=== PATIENT | female | born 1960 | race Caucasian/White ===

== ENCOUNTER 2018-11-07 11:45 | Observation (INO) ==
--- NOTE | 2018-11-07 15:04 | ED ---
HPI General Chief Complaint: Chest Pain Stated Complaint: Chest Pain Time Seen by Provider: 11/07/18 14:50 Source: patient Mode of arrival: ambulatory Limitations: no limitations History of Present Illness HPI narrative: 57 y/o female presents with note of chest pain since yesterday. She denies associated symptoms. She states it occurred while she was shopping at [employer]. complaint: Reports chest pain Onset (ago): day(s) Duration: intermittent Pain location: Reports substernal Severity: mild Pain radiation: Reports none Relieving factors: nothing Exacerbating factors: nothing Treatments prior to arrival chest pain: Reports none Related Data Home Medications Medication Instructions Recorded Confirmed amlodipine 5 mg PO DAILY 11/07/18 11/07/18 cholecalciferol (vitamin D3) 1,000 unit PO DAILY 11/07/18 11/07/18 [Vitamin D3] enalapril maleate 10 mg PO DAILY 11/07/18 11/07/18 gemfibrozil 600 mg PO BID 11/07/18 11/07/18 Allergies Allergy/AdvReac Type Severity Reaction Status Date / Time penicillin G Allergy Severe Hives Verified 11/07/18 15:10 egg [Eggs] Allergy Intermediate Diarrhea Verified 11/07/18 15:10 Review of Systems ROS: all other systems reviewed are negative PMFSH History History Provided By: Patient (Hypertension) Social History Social History Substance History: No History of Abuse Smoking Status: Former smoker How Often Do You Have a Drink Containing Alcohol: Never Recent Travel in [facility] within the Last 8 Weeks: No Recent Out of Country Travel within the Last 8 Weeks: No Exam Narrative Exam Narrative: GENERAL: 57 y/o female in no apparent distress SKIN: Focused skin assessment warm/dry. HEAD: Atraumatic. Normocephalic. EYES: Pupils equal and round. No scleral icterus. No injection or drainage. ENT: No nasal bleeding or discharge. Mucous membranes pink and moist. NECK: Trachea midline. No JVD. CARDIOVASCULAR: Regular rate and rhythm. No murmur appreciated. RESPIRATORY: No accessory muscle use. Clear to auscultation. Breath sounds equal bilaterally. GASTROINTESTINAL: Abdomen soft, non-tender, nondistended. MUSCULOSKELETAL: No obvious deformities. No clubbing. No cyanosis. No edema. NEUROLOGICAL: Awake and alert. Motor grossly within normal limits. Normal speech. PSYCHIATRIC: Appropriate mood and affect; insight and judgment normal. Course Reevaluation(s) Reevaluation #1: ED workup without emergent process, agrees to chest pain center observation Initial Documented Vital Signs Temperature 97.4 F L 11/07/18 12:15 Pulse Rate 65 11/07/18 12:15 Respiratory Rate 16 11/07/18 12:15 Blood Pressure 204/83 H 11/07/18 12:15 Pulse Oximetry 98 11/07/18 12:15 Last Documented Vital Signs Temperature 97.4 F L 11/07/18 12:15 Pulse Rate 67 11/07/18 16:33 Respiratory Rate 18 11/07/18 16:33 Blood Pressure 135/63 11/07/18 16:33 Pulse Oximetry 99 11/07/18 16:33 Medical Decision Making MDM Narrative Medical decision making narrative: We will check blood work, imaging and reevaluate Medical Screen Exam Complete: Yes Emergency Medical Condition: Yes Differential Diagnosis Differential Diagnosis: Musculoskeletal, gastritis, atypical cardiac Lab Data Lab results reviewed: Yes I reviewed the patient's lab results. Result diagrams: 11/07/18 15:20 11/07/18 15:20 Lab Results 11/07/18 11/07/18 11/07/18 Range/Units 15:20 15:20 15:50 WBC 7.8 (4.0-11.0) th/mm3 RBC 4.38 (4.00-5.30) mil/mm3 Hgb 13.2 (11.6-15.3) gm/dL Hct 39.0 (35.0-46.0) % MCV 89.0 (80.0-100.0) fL MCH 30.1 (27.0-34.0) pg MCHC 33.8 (32.0-36.0) % RDW 13.9 (11.6-17.2) % Plt Count 211 (150-450) th/mm3 MPV 9.4 (7.0-11.0) fL Neut % (Auto) 56.5 (16.0-70.0) % Lymph % (Auto) 31.3 (9.0-44.0) % [place] % (Auto) 5.8 (0.0-8.0) % Eos % (Auto) 5.4 H (0.0-4.0) % Baso % (Auto) 1.0 (0.0-2.0) % Neut # (Auto) 4.4 (1.8-7.7) th/mm3 Lymph # (Auto) 2.4 (1.0-4.8) th/mm3 [place] # (Auto) 0.5 (0.0-0.9) th/mm3 Eos # (Auto) 0.4 (0.0-0.4) th/mm3 Baso # (Auto) 0.1 (0.0-0.2) th/mm3 WBC Differential . Differential Comment Auto diff final PT 9.8 (9.8-11.6) sec INR 1.0 Ratio APTT 19.5 L (23.4-31.7) sec Sodium 141 (136-145) meq/L Potassium 4.2 (3.5-5.1) meq/L Chloride 110 H (98-107) meq/L Carbon Dioxide 23.1 (21.0-32.0) meq/L Anion Gap 8 (5-15) meq/L BUN 12 (7-18) mg/dL Creatinine 0.79 (0.50-1.00) mg/dL Estimated GFR 75 L (>89) mL/min Random Glucose 103 (74-106) mg/dL Calcium 8.6 (8.5-10.1) mg/dL Magnesium 2.3 (1.5-2.5) mg/dL Total Bilirubin 0.2 (0.2-1.0) mg/dL AST 19 (15-37) U/L ALT 25 (10-53) U/L Alkaline Phosphatase 104 (45-117) U/L Total Creatine Kinase 107 (26-192) U/L CK-MB (CK-2) Less than 1.0 (0.5-3.6) ng/mL Troponin I Less than 0.02 L (0.02-0.05) ng/mL Total Protein 7.6 (6.4-8.2) g/dL Albumin 3.9 (3.4-5.0) g/dL Imaging Data Attestation: I personally reviewed and interpreted this imaging study as follows : Radiologist's impression: Chest X-Ray 11/07/18 14:50 CONCLUSION: 1. Old granulomatous disease. 2. No acute infiltrate. Discharge Plan Discharge Disposition Patient Disposition: ED Admit(ED Internal Use Only) Discharge Order Discharge Orders: ED Use Only Admit Order (Routine); Ordered 11/07/18 Ordered By: Jazmin Mckenzie Discharge Details Diagnosis: Chest pain Physicians Team ED Provider: Jazmin Mckenzie Primary Care Provider: [facility]ician 's Attending Provider: Eleni Edmond ED Status: Admitted Observation Patient
[2018-11-07 15:37] LABS: Baso # (Auto) 0.1 th/mm3 (0.0-0.2); Eos # (Auto) 0.4 th/mm3 (0.0-0.4); Eos % (Auto) 5.4 % (0.0-4.0); Hemoglobin 13.2 gm/dL (11.6-15.3); Lymph # (Auto) 2.4 th/mm3 (1.0-4.8); Lymph % (Auto) 31.3 % (9.0-44.0); Mean Corpuscular HGB Conc 33.8 % (32.0-36.0); Mean Corpuscular Hemoglobin 30.1 pg (27.0-34.0); Mean Platelet Volume 9.4 fL (7.0-11.0); Mono # (Auto) 0.5 th/mm3 (0.0-0.9); Mono % (Auto) 5.8 % (0.0-8.0); Neut # (Auto) 4.4 th/mm3 (1.8-7.7); Neut % (Auto) 56.5 % (16.0-70.0); Platelet Count 211 th/mm3 (150-450); Red Blood Count 4.38 mil/mm3 (4.00-5.30); Red Cell Distribution Width 13.9 % (11.6-17.2); White Blood Count 7.8 th/mm3 (4.0-11.0)
--- NOTE | 2018-11-07 15:40 | XR ---
EXAM DATE: 11/07/2018 3:36 PM EST AGE/SEX: 57 years / Female INDICATIONS: Chest and left arm pain. CLINICAL DATA: This is the patient's initial encounter. Patient reports that signs and symptoms have been present for 2 days and indicates a pain score of 5/10. MEDICAL/SURGICAL HISTORY: None. None. COMPARISON: [facility] [place], CHEST PA & LAT, 04/08/2016. . FINDINGS: A single AP view of the chest demonstrates the lungs to be symmetrically aerated with stable granulom atous type calcifications in the white lower lung. There are also stable right paratracheal and subca rinal granulomatous lymph nodes. Otherwise, no acute infiltrate. No effusion. Heart size is normal. CONCLUSION: 1. Old granulomatous disease. 2. No acute infiltrate. Electronically signed by: Anthony Espinoza MD Board Certified Radiologist 11/07/2018 3:39 PM EST
[2018-11-07 15:56] LABS: Alanine Aminotransferase 25 U/L (10-53)
[2018-11-07 16:00] LABS: Alkaline Phosphatase 104 U/L (45-117); Creatine Kinase 107 U/L (26-192); Total Protein 7.6 g/dL (6.4-8.2)
[2018-11-07] MEDS ORDERED: Aspirin 325 MG Tablet PO ONE (16:10)
[2018-11-07 16:13] LABS: Albumin 3.9 g/dL (3.4-5.0); Anion Gap 8 meq/L (5-15); Aspartate Aminotransferase 19 U/L (15-37); Blood Urea Nitrogen 12 mg/dL (7-18); Calcium 8.6 mg/dL (8.5-10.1); Carbon Dioxide 23.1 meq/L (21.0-32.0); Chloride 110 meq/L (98-107); Glomerular Filtration Rate 75 mL/min (>89); Glucose,Random 103 mg/dL (74-106); Magnesium 2.3 mg/dL (1.5-2.5); Potassium 4.2 meq/L (3.5-5.1); Sodium 141 meq/L (136-145)
[2018-11-07 16:18] LABS: Activated Partial Thrombo Time 19.5 sec (23.4-31.7); Prothrombin Time 9.8 sec (9.8-11.6)
[2018-11-07] MEDS ORDERED: ALPRAZolam 0.25 MG Tablet PO PRN (17:26)
[2018-11-07] MEDS ORDERED: Acetaminophen 500 MG Tablet PO PRN (17:27)
--- NOTE | 2018-11-07 17:33 | P.HPCA ---
History of Present Illness Primary Care Physician: [facility] Chief Complaint: Chest pain History of Present Illness: This is a 57-year-old female history of hypertension and hyperlipidemia that presents to ED via private vehicle with complaint of 2 days of constant left- sided chest discomfort. States it began while she was at [employer]. States that her sister's electric cart ran out of battery and so she was pushing that while she was pushing her grocery cart while she was also pulling her dogs cart. It persisted throughout the day when she woke up this morning was still there. Denied associated shortness of breath, nausea, or diaphoresis. She states it resolved in the emerge part when she was given aspirin and sublingual nitroglycerin. Voices compliance with the medication. States that her blood pressure generally runs normal while on the medication. It is unusual to be elevated as it was in the ER when she first arrived. She states she has had cardiac evaluation in the past. Never had a heart catheterization. She had a Lexiscan at this facility March 2016 that was nonischemic. History of hypertension and hyperlipidemia. Denies diabetes and known CAD. Non-smoker. She is not aware of her family history. States she was adopted. - Diagnosis (1) Chest pain (2) Hypertension (3) Hyperlipidemia Review of Systems General: Patient denies fevers, chills, and recent travel. HEENT: Patient denies headache, sore throat, difficulty swallowing. Cardiovascular: Has the chest discomfort as mentioned above. Denies sensation of heart beating rapidly or irregularly. No syncope. Denies diaphoresis. Respiratory: Denies shortness of breath or inspirational chest discomfort. Denies coughing wheezing or hemoptysis. GI: Patient denies nausea, vomiting, diarrhea, abdominal pain, bloody stools. Musculoskeletal: Patient denies joint pain or edema. Denies calf pain or edema. Neurovascular: Patient denies numbness, tingling, weakness in extremities. Denies headache. Endocrine: Denies polyuria and polydipsia. Hematologic: Denies easy bruising. Skin: Denies rash or itching. PMFSH - History History Provided By: Patient (Hypertension) - Tobacco History Smoking Status: Former smoker - Alcohol History How Often Do You Have a Drink Containing Alcohol: Never - Substance Use History Substance History: No History of Abuse - Travel History Recent Travel in the [facility] Within the Last 8 Weeks: No Recent Travel Out of the Country Within the Last 8 Weeks: No - Immunization History Tetanus Immunization: <5 Years Medications and Allergies Active Medications: Active Medications Acetaminophen (Tylenol) 500 mg PO Q6H PRN PRN Reason: pain scale 1-5 Hydrocodone Bitart/Acetaminophen ([place] 7.5/325) 1 tab PO Q6H PRN PRN Reason: pain scale 6-10 Albuterol (Duoneb Neb (Prn)) 1 ampul NEB Q4HR NEB PRN PRN Reason: SHORTNESS OF BREATH/WHEEZING Alprazolam (Xanax) 0.25 mg PO Q8H PRN PRN Reason: ANXIETY Amlodipine Besylate (Norvasc) 5 mg PO DAILY [facility] Aspirin (Aspirin) 325 mg PO DAILY [facility] Clonidine HCl (Catapres) 0.1 mg PO Q6H PRN PRN Reason: SBP >165 OR DBP > 110 Enalapril Maleate (Vasotec) 10 mg PO DAILY [facility] Gemfibrozil (Lopid) 600 mg PO BID [facility] Ondansetron HCl (Zofran Inj) 4 mg IV.PUSH Q6H PRN PRN Reason: NAUSEA Sodium Chloride (Ns Flush) 2 ml IV.FLUSH UNSCH PRN PRN Reason: FLUSH AFTER USING IV ACCESS Sodium Chloride (Ns Flush) 2 ml IV.FLUSH BID [facility] Sodium Chloride (Ns Flush) 2 ml IV.FLUSH PRN PRN PRN Reason: FLUSH AFTER USING IV ACCESS Allergies Allergy/AdvReac Type Severity Reaction Status Date / Time penicillin G Allergy Severe Hives Verified 11/07/18 15:10 egg [Eggs] Allergy Intermediate Diarrhea Verified 11/07/18 15:10 Home Medications Medication Instructions Recorded Confirmed Type amlodipine 5 mg PO DAILY 11/07/18 11/07/18 History cholecalciferol (vitamin D3) 1,000 unit PO DAILY 11/07/18 11/07/18 History [Vitamin D3] enalapril maleate 10 mg PO DAILY 11/07/18 11/07/18 History gemfibrozil 600 mg PO BID 11/07/18 11/07/18 History Exam Vital signs: Vital Signs 11/07/18 12:15 11/07/18 15:05 11/07/18 15:08 Temperature 97.4 F L Pulse Rate 65 63 Respiratory Rate 16 Blood Pressure 204/83 H Pulse Oximetry 98 99 11/07/18 15:26 11/07/18 16:33 Temperature Pulse Rate 77 67 Respiratory Rate 18 18 Blood Pressure 141/77 H 135/63 Pulse Oximetry 99 99 Intake & Output 11/06/18 11/07/18 11/07/18 18:59 06:59 18:59 Weight 90.718 kg Narrative: GENERAL: This is a well-nourished, well-developed patient, in no apparent distress. Patient speaks in clear complete sentences. Patient is pleasant. HEENT: Head is atraumatic and normocephalic. Neck is supple without lymphadenopathy and trachea is midline. No JVD or carotid bruits. CARDIOVASCULAR: Regular rate and rhythm without murmurs, gallops, or rubs. RESPIRATORY: Clear to auscultation. Breath sounds equal bilaterally. No wheezes , rales, or rhonchi. Chest wall is nontender. No use of accessory muscles. GASTROINTESTINAL: Abdomen is nontender, nondistended. Abdomen soft. No obvious pulsatile mass or bruit. No CVA tenderness. Strong femoral pulses bilaterally. Normal bowel sounds in all quadrants. MUSCULOSKELETAL: Patient is moving upper and lower extremities freely. No calf tenderness or edema, no Homans sign. Strong pulses in upper and lower extremities. NEUROLOGICAL: Patient is alert and oriented. Cranial nerves 2-12 are grossly intact. No focal deficits and speech is clear. SKIN: No rash and turgor is normal. Results 11/07/18 15:20 11/07/18 15:20 Cardiac Enzymes 11/07/18 Range/Units 15:20 AST 19 (15-37) U/L CK-MB (CK-2) Less than 1.0 (0.5-3.6) ng/mL Troponin I Less than 0.02 L (0.02-0.05) ng/mL Coagulation 11/07/18 Range/Units 15:50 PT 9.8 (9.8-11.6) sec APTT 19.5 L (23.4-31.7) sec CBC 11/07/18 Range/Units 15:20 WBC 7.8 (4.0-11.0) th/mm3 RBC 4.38 (4.00-5.30) mil/mm3 Hgb 13.2 (11.6-15.3) gm/dL Hct 39.0 (35.0-46.0) % Plt Count 211 (150-450) th/mm3 Neut # (Auto) 4.4 (1.8-7.7) th/mm3 Lymph # (Auto) 2.4 (1.0-4.8) th/mm3 [place] # (Auto) 0.5 (0.0-0.9) th/mm3 Eos # (Auto) 0.4 (0.0-0.4) th/mm3 Baso # (Auto) 0.1 (0.0-0.2) th/mm3 Comprehensive Metabolic Panel 11/07/18 Range/Units 15:20 Sodium 141 (136-145) meq/L Potassium 4.2 (3.5-5.1) meq/L Chloride 110 H (98-107) meq/L Carbon Dioxide 23.1 (21.0-32.0) meq/L BUN 12 (7-18) mg/dL Creatinine 0.79 (0.50-1.00) mg/dL Calcium 8.6 (8.5-10.1) mg/dL AST 19 (15-37) U/L ALT 25 (10-53) U/L Alkaline Phosphatase 104 (45-117) U/L Total Protein 7.6 (6.4-8.2) g/dL Albumin 3.9 (3.4-5.0) g/dL Intake and Output 11/07/18 11/07/18 11/07/18 06:59 14:59 22:59 Other: Weight 90.718 kg Patient Weight 11/08/18 06:59 Weight 90.718 kg - Imaging and Cardiology Imaging: Impressions Chest X-Ray 11/07/18 14:50 CONCLUSION: 1. Old granulomatous disease. 2. No acute infiltrate. EKG interpretations - EKG EKG shows: sinus rhythm (Initial EKG sinus rhythm rate of [address] segment depressions or elevations.) Caprini VTE Risk Assessment Caprini VTE Risk Assessment: No/Low Risk (score <= 1) Caprini Risk Assessment Model: Point Value = 1 Point Value = 2 Point Value = 3 Point Value = 5 Age 41-60 Minor surgery BMI > 25 kg/m2 Swollen legs Varicose veins or History of unexplained or recurrent spontaneous Oral contraceptives or hormone replacement Sepsis (< 1 month) Serious lung disease, including pneumonia (< 1 month) Abnormal pulmonary function Acute myocardial infarction Congestive heart failure (< 1 month) History of inflammatory bowel disease Medical patient at bed rest Age 61-74 Arthroscopic surgery Major open surgery (> 45 min) Laparoscopic surgery (> 45 min) Malignancy Confined to bed (> 72 hours) Immobilizing plaster cast Central venous access Age >= 75 History of VTE Family history of VTE Factor V Leiden Prothrombin 22419H Lupus anticoagulant Anticardiolipin antibodies Elevated serum homocysteine Heparin-induced thrombocytopenia Other congenital or acquired thrombophilia Stroke (< 1 month) Elective arthroplasty Hip, pelvis, or leg fracture Acute spinal cord injury (< 1 month) Prophylaxis Regimen: Total Risk Factor Score Risk Level Prophylaxis Regimen 0-1 Low Early ambulation 2 Moderate Order ONE of the following: *Sequential Compression Device (SCD) *Heparin 5000 units SQ BID 3-4 Higher Order ONE of the following medications: *Heparin 5000 units SQ TID *Enoxaparin/Lovenox 40 mg SQ daily (WT < 150 kg, CrCl > 30 mL/min) *Enoxaparin/Lovenox 30 mg SQ daily (WT < 150 kg, CrCl > 10-29 mL/min) *Enoxaparin/Lovenox 30 mg SQ BID (WT < 150 kg, CrCl > 30 mL/min) AND/OR *Sequential Compression Device (SCD) 5 or more Highest Order ONE of the following medications: *Heparin 5000 units SQ TID (Preferred with Epidurals) *Enoxaparin/Lovenox 40 mg SQ daily (WT < 150 kg, CrCl > 30 mL/min) *Enoxaparin/Lovenox 30 mg SQ daily (WT < 150 kg, CrCl > 10-29 mL/min) *Enoxaparin/Lovenox 30 mg SQ BID (WT < 150 kg, CrCl > 30 mL/min) AND *Sequential Compression Device (SCD) Assessment and Plan - Assessment (1) Chest pain Code(s): R07.9 - Chest pain, unspecified Status: Acute (2) Hypertension Code(s): I10 - Essential (primary) hypertension Status: Acute (3) Hyperlipidemia Code(s): E78.5 - Hyperlipidemia, unspecified Status: Acute - Plan * Chest pain: Patient is to have serial cardiac enzymes and EKGs for ruling out purposes. She has been evaluated by Dr. Edmond of cardiology and the chest pain center. She will likely have a Jose R protocol ETT in the morning if she rules out. She will be discharged home with instructions to follow-up with PCP if stress test is nonischemic. She should return to ED for interval issues. * Hypertension: Continue medication. * Hyperlipidemia: Continue medication. Patient is stable at this time. She is agreeable to this plan.
[2018-11-07 21:17] LABS: Creatine Kinase 79 U/L (26-192)
[2018-11-07 22:54] LABS: Creatine Kinase 80 U/L (26-192)
[2018-11-08 07:52] VITALS: BP 160/86; RESP 16; TEMP 97.9; O2SAT 98
[2018-11-08] MEDS ORDERED: Gemfibrozil 600 MG Tablet PO SCH (08:00)
--- NOTE | 2018-11-08 08:56 | P.PNCA ---
Subjective Interval history: No further chest pain. Offers no complaints. Medications and Allergies Active Medications: Active Medications Acetaminophen (Tylenol) 500 mg PO Q6H PRN PRN Reason: pain scale 1-5 Hydrocodone Bitart/Acetaminophen ([place] 7.5/325) 1 tab PO Q6H PRN PRN Reason: pain scale 6-10 Albuterol (Duoneb Neb (Prn)) 1 ampul NEB Q4HR NEB PRN PRN Reason: SHORTNESS OF BREATH/WHEEZING Alprazolam (Xanax) 0.25 mg PO Q8H PRN PRN Reason: ANXIETY Amlodipine Besylate (Norvasc) 5 mg PO DAILY [facility] Last Admin: 11/08/18 08:12 Dose: 5 mg Aspirin (Aspirin) 325 mg PO DAILY [facility] Last Admin: 11/08/18 08:12 Dose: 325 mg Clonidine HCl (Catapres) 0.1 mg PO Q6H PRN PRN Reason: SBP >165 OR DBP > 110 Enalapril Maleate (Vasotec) 10 mg PO DAILY [facility] Last Admin: 11/08/18 08:11 Dose: 10 mg Gemfibrozil (Lopid) 600 mg PO BIDAC [facility] Last Admin: 11/08/18 08:12 Dose: 600 mg Ondansetron HCl (Zofran Inj) 4 mg IV.PUSH Q6H PRN PRN Reason: NAUSEA Sodium Chloride (Ns Flush) 2 ml IV.FLUSH BID [facility] Last Admin: 11/08/18 08:12 Dose: 2 ml Sodium Chloride (Ns Flush) 2 ml IV.FLUSH PRN PRN PRN Reason: FLUSH AFTER USING IV ACCESS Allergies Allergy/AdvReac Type Severity Reaction Status Date / Time penicillin G Allergy Severe Hives Verified 11/07/18 15:10 egg [Eggs] Allergy Intermediate Diarrhea Verified 11/07/18 15:10 Home Medications Medication Instructions Recorded Confirmed Type amlodipine 5 mg PO DAILY 11/07/18 11/07/18 History cholecalciferol (vitamin D3) 1,000 unit PO DAILY 11/07/18 11/07/18 History [Vitamin D3] enalapril maleate 10 mg PO DAILY 11/07/18 11/07/18 History gemfibrozil 600 mg PO BID 11/07/18 11/07/18 History Physical Exam Vital signs: Vital Signs 11/07/18 12:15 11/07/18 15:05 11/07/18 15:08 Temperature 97.4 F L Pulse Rate 65 63 Respiratory Rate 16 Blood Pressure 204/83 H Pulse Oximetry 98 99 11/07/18 15:26 11/07/18 16:33 11/07/18 19:49 Temperature 97.5 F L Pulse Rate 77 67 64 Respiratory Rate 18 18 20 Blood Pressure 141/77 H 135/63 141/76 H Pulse Oximetry 99 99 97 11/08/18 00:00 11/08/18 03:25 11/08/18 03:59 Temperature 97.6 F 97.6 F Pulse Rate 73 48 L 59 L Respiratory Rate 16 20 Blood Pressure 128/60 141/67 H Pulse Oximetry 96 97 11/08/18 07:50 Temperature 97.9 F Pulse Rate 60 Respiratory Rate 16 Blood Pressure 160/86 H Pulse Oximetry 98 Intake & Output 11/07/18 11/08/18 11/08/18 18:59 06:59 18:59 Weight 90.718 kg Other: # Voids 3 Date of Last Bowel Movement 11/07/18 Weight On Admission 90.718 kg Narrative: Obese female sitting in bed in no acute distress. - Routine HEENT Exam Head: Present: normocephalic, atraumatic - Routine Respiratory Exam Present: CTA bilaterally - Routine Cardiovascular Exam Present: RRR. Absent: murmur, gallop, rubs - Routine Abdominal Exam Present: soft, normoactive bowel sounds - Routine Skin Exam Present: intact, warm Results 11/07/18 15:20 11/07/18 15:20 Cardiac Enzymes 11/07/18 11/07/18 11/07/18 Range/Units 15:20 19:50 21:35 AST 19 (15-37) U/L CK-MB (CK-2) Less than 1.0 (0.5-3.6) ng/mL Troponin I Less than 0.02 L Less than 0.02 L Less than 0.02 L (0.02-0.05) ng/mL Coagulation 11/07/18 Range/Units 15:50 PT 9.8 (9.8-11.6) sec APTT 19.5 L (23.4-31.7) sec CBC 11/07/18 Range/Units 15:20 WBC 7.8 (4.0-11.0) th/mm3 RBC 4.38 (4.00-5.30) mil/mm3 Hgb 13.2 (11.6-15.3) gm/dL Hct 39.0 (35.0-46.0) % Plt Count 211 (150-450) th/mm3 Neut # (Auto) 4.4 (1.8-7.7) th/mm3 Lymph # (Auto) 2.4 (1.0-4.8) th/mm3 [place] # (Auto) 0.5 (0.0-0.9) th/mm3 Eos # (Auto) 0.4 (0.0-0.4) th/mm3 Baso # (Auto) 0.1 (0.0-0.2) th/mm3 Comprehensive Metabolic Panel 11/07/18 Range/Units 15:20 Sodium 141 (136-145) meq/L Potassium 4.2 (3.5-5.1) meq/L Chloride 110 H (98-107) meq/L Carbon Dioxide 23.1 (21.0-32.0) meq/L BUN 12 (7-18) mg/dL Creatinine 0.79 (0.50-1.00) mg/dL Calcium 8.6 (8.5-10.1) mg/dL AST 19 (15-37) U/L ALT 25 (10-53) U/L Alkaline Phosphatase 104 (45-117) U/L Total Protein 7.6 (6.4-8.2) g/dL Albumin 3.9 (3.4-5.0) g/dL Intake and Output 11/07/18 11/08/18 11/08/18 22:59 06:59 14:59 Other: # Voids 3 Date of Last Bowel Movement 11/07/18 Weight 90.718 kg Weight On Admission 90.718 kg - Imaging and Cardiology Imaging: Impressions Chest X-Ray 11/07/18 14:50 CONCLUSION: 1. Old granulomatous disease. 2. No acute infiltrate. Assessment and Plan - Assessment (1) Chest pain Code(s): R07.9 - Chest pain, unspecified Status: Acute Plan: ACS rule out 3 sets of EKGs and cardiac enzymes. Previously seen and evaluated by Dr. Eleni Edmond. Plan is to proceed with Jose R protocol ETT however currently chest pain treadmill nonfunctional therefore will proceed with Lexiscan. Patient agreeable to plan of care. (2) Hypertension Code(s): I10 - Essential (primary) hypertension Status: Chronic Plan: Continue amlodipine and enalapril. Discussed importance of tight blood pressure control, weight loss, sodium restriction, and increasing daily activity. (3) Hyperlipidemia Code(s): E78.5 - Hyperlipidemia, unspecified Status: Acute Plan: Continue gemfibrozil. - Plan * Chest pain: Patient is to have serial cardiac enzymes and EKGs for ruling out purposes. She has been evaluated by Dr. Edmond of cardiology and the chest pain center. She will likely have a Jose R protocol ETT in the morning if she rules out. She will be discharged home with instructions to follow-up with PCP if stress test is nonischemic. She should return to ED for interval issues. * Hypertension: Continue medication. * Hyperlipidemia: Continue medication. Patient is stable at this time. She is agreeable to this plan. (1) Chest pain Qualifiers: Chest pain type: unspecified Qualified Code(s): R07.9 - Chest pain, unspecified (2) Hypertension Qualifiers: Hypertension type: unspecified Qualified Code(s): I10 - Essential (primary) hypertension (3) Hyperlipidemia Qualifiers: Hyperlipidemia type: unspecified Qualified Code(s): E78.5 - Hyperlipidemia, unspecified
[2018-11-08] MEDS ORDERED: Aspirin 325 MG Tablet PO SCH (09:00)
[2018-11-08] MEDS ORDERED: amLODIPine 5 MG Tablet PO SCH (09:00)
[2018-11-08 12:49] VITALS: PULSE 59
[2018-11-08] MEDS ORDERED: Regadenoson Inj 0.4 MG/5 ML Syringe IV.PUSH ONE (12:57)
--- NOTE | 2018-11-08 14:26 | NM ---
EXAM DATE: 11/08/2018 2:19 PM EST AGE/SEX: 57 years / Female INDICATIONS:Angina. . Chest pain. CLINICAL DATA: This is the patient's initial encounter. Patient reports that signs and symptoms have been present for 1 day and indicates a pain score of 7/10. MEDICAL/SURGICAL HISTORY: None. None. COMPARISON: [facility] [place]ARD[place]F PHARM SPECT, 04/09/2016. . DOSE: 8.3 mCi Tc 99m Myoview at rest 25.5 mCi [id number] at stress 0.4 mg Lexiscan STRESS SYMPTOMS: None. EJECTION FRACTION: 55 % TECHNIQUE: The patient underwent pharmacologic stress with infusion of prescribed dose. Continuous ECG tracing was monitored during stress. Gated SPECT imaging was performed after stress and conventi onal SPECT imaging was performed at rest. The examination was performed on a SPECT/CT scanner, both attenuation and non-corrected datasets were reviewed. FINDINGS: Distribution: The maximum perfused segment at stress is in the septal wall. Perfusion Study: The pattern of perfusion at stress is within normal limits. Gated Study: There are intact wall motion and wall thickening without hypokinetic or dyskinetic segm ents. The ejection fraction is calculated at 55%. RISK CATEGORY: Low (<1% Annual Motality Rate) CONCLUSION: 1. Negative examination. Electronically signed by: Trevor Wise MD Board Certified Radiologist 11/08/2018 2:24 PM EST
--- NOTE | 2018-11-08 15:04 | ECG ---
Date Performed: 11/07/2018 Time Performed: 20:42:29 PTAGE: 57 years EKG: Sinus rhythm MARKED LEFT AXIS DEVIATION ABNORMAL ECG PREVIOUS TRACING : 11/07/2018 12.32 Since previous tracing, no significant change noted DOCTOR: London Naik Interpretating Date/Time 11/08/2018 15:02:35
--- NOTE | 2018-11-08 15:04 | ECG ---
Date Performed: 11/07/2018 Time Performed: 17:49:07 PTAGE: 57 years EKG: SINUS BRADYCARDIA BORDERLINE ECG NO PREVIOUS TRACING DOCTOR: London Naik Interpretating Date/Time 11/08/2018 15:03:14
--- NOTE | 2018-11-08 15:10 | TR ---
Date Performed: 11/08/2018 Time Performed: 13:01:22 DOCTOR: London Naik DRUG LIST: HENRYC ASA CASSANDRA CLINICAL HISTORY: REASON FOR TEST: REASON FOR ENDING: OBSERVATION: CONCLUSION: COMMENTS: Lexiscan stress test was performed under standard four minute protocol. Radionuclide was injected one minute prior to ending the test. No electrocardiographic abormalities were present t o suggest ischemia. Nuclear imaging and interpretation are pending.
--- NOTE | 2018-11-08 20:51 | ECG ---
Date Performed: 11/07/2018 Time Performed: 12:32:24 PTAGE: 57 years EKG: Sinus rhythm , HR OF 60 BPM LEFT ANTERIOR FASCICULAR BLOCK ABNORMAL ECG PREVIOUS TRACING : 04/08/16 @ 1822 DOCTOR: Nishi Dale Interpretating Date/Time 11/08/2018 20:49:47
== END 2018-11-08 14:59 | disposition home or self-care (01) ==
LOC: NEDA 11:45 → NEPC 11:45 → NEDA 18:03 → NEPFCDU 18:04
PROVIDERS: ADMIT Internal Medicine Interventional Cardiology; ATTEND Internal Medicine Interventional Cardiology
DX: I20.9 Angina pectoris, unspecified; R07.9 Chest pain, unspecified; E66.9 Obesity, unspecified; M79.602 Pain in left arm; Z87.891 Personal history of nicotine dependence; E78.5 Hyperlipidemia, unspecified; I10 Essential (primary) hypertension